=== PATIENT | female | born 1980 | race American Indian/Alaskan Native ===

== ENCOUNTER 2020-02-10 12:29 | Emergency (ER) | payer MEDICAID ==
[2020-02-10 12:56] VITALS: BP 147/90
--- NOTE | 2020-02-10 16:36 | Emergency Department Report ---
Eye Injury/Foreign Body - HPI Duration: 7 days Eye Location: Left Tetanus Status: Up to Date Eye Symptoms: Eye Pain: Yes (Upper lid left), Blurred Vision: No Other History: 39-year-old -[place] female presents to the emergency room complaining of swollen eyes for 7 days. Patient states that she has been having some eye drainage eyelash being matting in the morning. She is she does not wear contacts. 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 Patient denies any fever or chills. She denies any pain but states her eyes itch. ED Review of Systems ROS: Stated complaint: EYES SWELLING Other details as noted in HPI Comment: All other systems reviewed and negative ED Past Medical Hx - Past Medical History Previous Medical History?: No - Surgical History Past Surgical History?: No - Social History Smoking Status: Never Smoker - Medications Home Medications: Home Medications Medication Instructions Recorded Confirmed Last Taken Type Erythromycin [Erythromycin Ophth 1 strip OU QID 10 Days #2 tube 02/10/20 Unknown Rx Oint] Eye Injury Exam - Exam General: Vital signs noted. No distress. Alert and acting appropriately. - Visual Acuity Bilateral Eye Exam: Neither Injection, Neither Chemosis, Neither Abnormal Pupil, Neither EOMI, Neither Eye Foreign Body, Neither Lid Foreign Body (Left upper eye swelling with a firm mass.), Neither Mucous Discharge, Neither Purulent Discharge, Neither Fluorescein Uptake, Neither Fluorescein Uptake (slit lamp), Neither Cell/Flare (slit lamp), Neither Corneal Edema, Neither Photophobia ED Course Vital Signs 02/10/20 12:55 Temperature 98.4 F Pulse Rate 68 Respiratory 18 Rate Blood Pressure 147/90 O2 Sat by Pulse 100 Oximetry ED Medical Decision Making - Medical Decision Making 39-year-old -[place] female presents to the emergency room complaining of swollen eyes for 7 days. Patient states that she has been having some eye drainage eyelash being matting in the morning. She is she does not wear contacts. 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 Patient denies any fever or chills. She denies any pain but states her eyes itch. Patient appears to have a stye on her left upper eyelid. Discussed with patient to continue with warm compresses use erythromycin ophthalmic ointment. Follow- up with an rod mill operator as she may need to have the stye removed. Critical care attestation.: If time is entered above; I have spent that time in minutes in the direct care of this critically ill patient, excluding procedure time. ED Disposition Clinical Impression: Chalazion left upper eyelid Disposition: DC-01 TO HOME OR SELFCARE Is pt being admited?: No Does the pt Need Aspirin: No Condition: Stable Instructions: Chalazion (ED) Additional Instructions: Please use ophthalmic ointment antibiotic as prescribed. Follow-up with a rod mill operator I have listed several below for your convenience. Be sure to wash your hands before and after applying. Prescriptions: Erythromycin [Erythromycin Ophth Oint] 1 strip OU QID 10 Days #2 tube Referrals: GROVER RAMIRES MD [Primary Care Provider] - 3-5 Days JOHNNY KAMINSKI MD [Staff Physician] - 3-5 Days [facility] [place] [Provider Group] - 3-5 Days [facility] [Provider Group] - 3-5 Days Forms: Work/School Release Form(ED)
== END 2020-02-10 17:26 | disposition home or self-care (01) ==
LOC: ED 12:29
DX: H00.14 Chalazion left upper eyelid (principal); Z79.2 Long term (current) use of antibiotics
CPT/HCPCS: 99282